=== PATIENT | male | born 2000 | race Caucasian/White ===

== ENCOUNTER 2020-04-07 13:42 | Emergency (ER) | payer OTHER, SELFPAY ==
--- NOTE | ~2020-04-07 | CT_ITS ---
EXAMINATION: CT abdomen pelvis w con DATE: 04/07/2020 14:33 INDICATION: Abdominal pain. Nausea and vomiting. TECHNIQUE: Computed tomography (CT) of the abdomen and pelvis was performed with 100 mL Omnipaque 350 intravenous contrast. Automated exposure control and iterative reconstruction technique were employe d. The dose-length product was 284.97 mGy-cm. COMPARISON: None. FINDINGS: The visualized portions of the lung bases are clear without pneumonia or pleural effusion. The heart size is normal. Pneumomediastinum is noted. The liver, gallbladder, spleen, pancreas, adren al glands, and kidneys are normal. There are no dilated loops of bowel. The appendix is normal. There are no pathologically enlarged lymph nodes. There is no free intraperitoneal fluid. The bones are un remarkable. IMPRESSION: 1. Pneumomediastinum. Reviewed, dictated and finalized at location A. IMPRESSION: 1. Pneumomediastinum.
[2020-04-07 13:46] VITALS: BP 138/80; PULSE 62; RESP 20; TEMP 36.5; O2SAT 99
[2020-04-07 14:06] LABS: Basophils Percent Auto 0.3 % (0.2-1.2); Eosinophils Percent Auto 0.2 % (0-4.4); Hematocrit 50.8 % (42.0-52.0); Immature Granulocyte Absolute 0.04 K/mm3 (0.00-0.031); Immature Granulocyte Percent A 0.4 % (0-0.5); Lymphocytes Absolute Auto 1.36 K/mm3 (0.9-3.2); Lymphocytes Percent Auto 14.2 % (18.3-44.2); Mean Corpuscular HGB Conc 35.4 g/dl (32-36); Mean Corpuscular Hemoglobin 31.1 pg (26-34); Mean Corpuscular Volume 87.7 fl (80-100); Mean Platelet Volume 12.3 fl (7.4-10.4); Monocytes Absolute Auto 0.5 K/mm3 (0.1-0.6); Monocytes Percent Auto 4.8 % (2.6-8.5); Neutrophils Absolute Auto 7.7 K/mm3 (1.3-6.7); Neutrophils Percent Auto 80.1 % (45.5-73.1); Platelet Count Result 177 k/mm3 (150-375); Red Blood Count 5.79 M/mm3 (4.6-6.20); Red Cell Distribution Width 11.9 % (11.5-14.5); White Blood Count 9.6 K/mm3 (4.5-10.0)
--- NOTE | 2020-04-07 14:09 | ED.GENADULT ---
HPI - General Adult General Chief complaint: Abdominal Pain Stated complaint: abd pain, N/V Time Seen by Provider: 04/07/20 13:44 Source: patient History of Present Illness HPI narrative: Patient is a 19 y/o male complaining of left sided abdominal pain and vomiting since this morning. He describes the pain as cramping and rates it as 5/10. There is no alleviating or exacerbating factor. There is no pain radiation. He vomited approximately 5 times. He denies any fever, chills or dysuria. Related Data Home Medications Medication Instructions Recorded Confirmed No Home Medications 04/07/20 04/07/20 Allergies Allergy/AdvReac Type Severity Reaction Status Date / Time No Known Allergies Allergy Verified 04/07/20 13:50 Review of Systems Constitutional: Constitutional: Denies chills, Denies fever(s), Denies headache(s) and Denies weakness Eyes: Eyes: Denies blurry vision ENT: Denies headache(s) and Denies neck pain Cardiovascular: Cardiovascular: Denies chest pain and Denies dyspnea Respiratory: Respiratory: Denies cough and Denies dyspnea Gastrointestinal: Gastrointestinal: Reports abdominal pain, Denies diarrhea, Reports nausea and Reports vomiting Genitourinary: Genitourinary: Denies hematuria and Denies dysuria Musculoskeletal: Musculoskeletal: Denies back pain and Denies neck pain Neurologic: Denies headache(s) and Denies weakness Exam Const: General: no acute distress and well developed Orientation/consciousness: oriented to person, oriented to place, oriented to time and patient oriented x3 HENMT: Head: normocephalic Ears: external ears normal General nose exam: Normal external nose present Eyes: General: appearance normal, both eyes and all related structures Conjunctivae: conjunctivae normal Neck: Neck: normal visual inspection and full ROM Chest: Chest palpation & inspection: normal inspection of the chest and no tenderness Resp: Effort & Inspection: normal respiratory effort Auscultation: clear to auscultation bilaterally Cardio: Rate: regular rate Rhythm: regular rhythm GI: GI Palp: No abdominal tenderness and Yes Soft to palpation Skin: General skin exam: normal color and turgor normal Neuro: General: oriented to person, oriented to place, oriented to time and patient oriented x3 Cognition (Neuro): normal cognition Extrem: General: normal to inspection, full ROM and no pedal edema Psych: Appearance: grossly normal Mental Status: mental status grossly normal Affect: normal affect Course Consultations Consultation #1: Discussed with Dr. Saldivar (thoracic surgery at [place]), who agrees to transfer. Date: 04/07/20 Time: 16:10 Vital Signs Vital signs: Vital Signs Temperature 36.5 C 04/07/20 13:46 Pulse Rate 62 04/07/20 13:46 Respiratory Rate 20 04/07/20 13:46 Blood Pressure 138/80 04/07/20 13:46 Pulse Oximetry 99 04/07/20 13:46 Temperature 36.6 C 04/08/20 02:45 Pulse Rate 65 04/08/20 02:45 Respiratory Rate 19 04/08/20 02:45 Blood Pressure 118/67 04/08/20 02:45 Pulse Oximetry 99 04/08/20 02:45 Medical Decision Making Vital Signs Vital Signs: Vital Signs Temperature 36.5 C 04/07/20 13:46 Pulse Rate 62 04/07/20 13:46 Respiratory Rate 20 04/07/20 13:46 Blood Pressure 138/80 04/07/20 13:46 Pulse Oximetry 99 04/07/20 13:46 Temperature 36.6 C 04/08/20 02:45 Pulse Rate 65 04/08/20 02:45 Respiratory Rate 19 04/08/20 02:45 Blood Pressure 118/67 04/08/20 02:45 Pulse Oximetry 99 04/08/20 02:45 Lab Data Result diagrams: 04/07/20 13:53 04/07/20 13:53 Labs: Lab Results 04/07/20 04/07/20 04/07/20 Range/Units 13:53 13:53 13:53 WBC 9.6 (4.5-10.0) K/mm3 RBC 5.79 (4.6-6.20) M/mm3 Hgb 18.0 (14.0-18.0) g/dL Hct 50.8 (42.0-52.0) % MCV 87.7 (80-100) fl MCH 31.1 (26-34) pg MCHC 35.4 (32-36) g/dl RDW 11.9 (11.5-14.5) % Plt Count 177
[2020-04-07 14:13] LABS: Alanine Aminotransferase 22 U/L (4-50); Albumin Level 5.5 g/dL (3.7-5.6); Alkaline Phosphatase 102 U/L (58-237); Anion Gap 14 mmol/L (8-16); Aspartate Amino Transferase 30 U/L (17-59); Bilirubin,Total 0.9 mg/dL (0.2-1.3); Blood Urea Nitrogen 16 mg/dL (8-21); Calcium 10.8 mg/dL (8.9-10.7); Carbon Dioxide 28 mmol/L (22-30); Chloride 100 mmol/L (98-107); Estimated CRCL calculation 129 ml/min; Estimated Glomerular Filt Rate > 60; Glucose 131 mg/dL (75-110); Lipase 119 U/L (23-300); Potassium 3.6 mmol/L (3.4-5.0); Sodium 142 mmol/L (134-143)
[2020-04-07] MEDS: KETOROLAC 30 MG/ML VIAL (*BKC) IV PUSH (14:22)
[2020-04-07] MEDS: ONDANSETRON INJ 4 MG/2 ML VIAL IV PUSH (14:22)
[2020-04-07] MEDS: SODIUM CHLORIDE 0.9% IV 1,000 ML 999 ML IV CONT (14:22)
[2020-04-07 15:36] VITALS: BP 133/72; PULSE 50; RESP 15; O2SAT 99
[2020-04-07 15:56] LABS: Add Urine Microscopic? YES; Appearance Urine Cloudy (Clear); Bacteria Urine Trace /hpf; Bilirubin Urine Negative (Negative); Blood Urine Negative (Negative); Color Urine Yellow (Yellow); Glucose Urine UA Negative (Negative); Ketones Urine 2+ mg/dL (Negative); Leukocyte Esterase Ur Negative LEU/UL (Negative); Mucus Urine Rare /lpf; Nitrate Urine Negative (Negative); Protein Urine 1+ mg/dL (Negative); RBC Urine 0-2 /hpf (0-2); Urobilinogen Urine Negative mg/dL (<2.0); WBC Urine 0-3 /hpf
[2020-04-07 15:59] LABS: Specific Grav Ur 1.059 (1.001-1.035)
--- NOTE | 2020-04-07 16:15 | PC.NURSE ---
Patient unable to urinate again for drug screen at this time, patient reports that he will attempt again later.
[2020-04-07 16:20] VITALS: BP 135/72; PULSE 66; RESP 18; O2SAT 98
[2020-04-07] MEDS: METOCLOPRAMIDE HCL INJ 10 MG/2 ML VIAL IV PUSH (16:27)
[2020-04-07 16:40] LABS: Amphetamine Screen Urine Negative (Negative); Barbiturate Screen Urine Negative (Negative); Benzodiazepines Screen Urine Negative (Negative); Cannabinoid Screen Urine Positive (Negative); Cocaine Screen Urine Negative (Negative); Methadone Screen Urine Negative (Negative); Opiate Screen Urine Negative (Negative); Phencyclidine Screen Urine Negative (Negative)
[2020-04-07 17:59] VITALS: BP 119/66; PULSE 73; RESP 18; O2SAT 96
[2020-04-07 18:49] VITALS: BP 138/73; PULSE 53; RESP 17; O2SAT 99
--- NOTE | 2020-04-07 20:44 | PC.NURSE ---
SPOKE WITH MATT AT [facility]...EVERYTHING IS COMPLETED, STILL WAITING FOR A BED ASSIGNMENT...DOES NOT EXPECT ANYTHING BEFORE MIDNIGHT.
[2020-04-08] MEDS: ONDANSETRON INJ 4 MG/2 ML VIAL IV PUSH (00:23)
--- NOTE | 2020-04-08 00:35 | PC.NURSE ---
[facility] Transfer[facility]Access called with bed (#[id number]) for patient.
--- NOTE | 2020-04-08 00:40 | PC.NURSE ---
Called [facility] to transport to [place] (#[id number]). ETA 02:30.
[2020-04-08 02:45] VITALS: BP 118/67; PULSE 65; RESP 19; TEMP 36.6; O2SAT 99
== END 2020-04-08 02:45 | disposition short-term general hospital (02) ==
LOC: ANHED 13:52
PROVIDERS: Emergency Provider Emergency Medicine; PCP Pediatrics
DX: J98.2 Interstitial emphysema (principal); R11.2 Nausea with vomiting, unspecified
CPT/HCPCS: 36415; 74177; 80053; 80307; 81001; 83690; 85025; 96361; 96374; 96375; 99285; J1885; J2405; J2765; J7030; Q9967

== ENCOUNTER 2023-08-14 10:39 | Emergency (ER) | payer OTHER, SELFPAY ==
[2023-08-14 10:47] VITALS: BP 145/81; PULSE 78; RESP 16; O2SAT 100
--- NOTE | 2023-08-14 12:11 | ED.NAVMDI ---
HPI - Nausea/Vomiting/Diarrhea General Chief complaint: Nausea/Vomiting/Diarrhea Stated complaint: N/V Time Seen by Provider: 08/14/23 11:55 Source: patient and family ( Father) Mode of arrival: ambulatory Limitations: no limitations History of Present Illness HPI Narrative: 22-year-old male presents with nausea, vomiting, and diarrhea. He has had approximately 10 episodes of nonbloody nonbilious emesis. He has also had 2 loose but soft and formed stools. No sick contacts. No fevers or abdominal pain. He is experiencing chills. Dad was concerned as he appeared pale. he has a history of esophageal tear during vomiting previously but is not having chest pain and has nonbloody emesis at this time. Related Data Allergies Allergy/AdvReac Type Severity Reaction Status Date / Time No Known Allergies Allergy Verified 08/14/23 12:21 [facility] Past Medical History Medical History (Updated 08/15/23 @ 00:00 by Background Daemon) Esophageal tear Exam Narrative: GENERAL: Well-appearing, well-nourished, and in no acute distress. HEAD: Normocephalic, atraumatic. EYES: Non injected, non icteric ENT: Nares clear, no rhinorrhea or epistaxis. NECK: Supple. CHEST: Speaking complete sentences. No respiratory distress. HEART: Regular rate and rhythm. ABDOMEN: Soft, nondistended. nontender to palpation without rigidity or guarding. EXTREMITIES: Normal range of motion. No edema. SKIN: Warm, dry, no rash. No diaphoresis. Pale. NEURO: No focal deficits. Alert and oriented x3. PSYCH: Normal mood and affect. Course Vital Signs Vital signs: Vital Signs Pulse Rate 78 08/14/23 10:47 Respiratory Rate 16 08/14/23 10:47 Blood Pressure 145/81 H 08/14/23 10:47 Pulse Oximetry 100 08/14/23 10:47 Temperature 97.8 F 08/14/23 15:22 Pulse Rate 79 08/14/23 15:22 Respiratory Rate 19 08/14/23 15:22 Blood Pressure 128/69 08/14/23 15:22 Pulse Oximetry 100 08/14/23 15:22 MDM - Nausea/Vomiting/Diarrhea MDM Narrative Medical decision making narrative: Patient presents nausea, vomiting, diarrhea of 1 day's duration. In the emergency department he is afebrile (VS doesn't initially include temp but did observe RN obtaining 97.4F under tongue), with vital signs that show only mild hypertension. Will obtain labs as well as viral testing. Patient will be given IV ondansetron and reassess. Will defer obtaining imaging at this time as he has a benign abdominal exam is without abdominal pain. Work up generally unremarkable. Viral testing negative. Re-evaluated, resting comfortably. DIscussed discharge instructions extensively with patient's father. Will Rx ondansetron so can maintain hydration. Discussed diluting juice and possibly avoiding milk. Discussed B-R-A-T or otherwise bland diet. Will provide work note. Given ED return precautions; father verified understanding. Differential Diagnosis Differential diagnosis: Likely traveler's diarrhea, food poisoning, gastroenteritis, drug-induced nausea and vomiting (considered cannabinoid hyperemesis syndrome) and dehydration Lab Data Attestation: I reviewed the patient's lab results. Lab results narrative: Thrombocytopenia and leukocytosis. Normal renal funciton. No marked electrolyte abnormalities. Urine turbid with ketonuria and mild proteinuria but w/o evidence of infection. 08/14/23 12:14 08/14/23 12:14 Labs: Lab Results 08/14/23 08/14/23 Range/Units 12:14 13:04 WBC 13.9 H (4.5-10.0) K/mm3 RBC 5.01 (4.6-6.20) M/mm3 Hgb 15.7 (14.0-18.0) g/dL Hct 45.9 (42.0-52.0) % MCV 91.6 (80-100) fl MCH 31.3 (26-34) pg MCHC 34.2 (32-36) g/dl RDW 11.7 (11.5-14.5) % Plt Count 146 L (150-375) k/mm3 MPV 12.5 H (7.4-10.4) fl Immature Gran % (Auto) 0.3 (0-0.5) % Neut % (Auto) 90.9 H (45.5-73.1) % Lymph % (Auto) 4.7 L (18.3-44.2) % [place] % (Auto) 3.8 (2.6-8.5) % Eos % (Auto)
[2023-08-14 12:19] VITALS: BP 160/69; PULSE 56; RESP 20; TEMP 36.6; O2SAT 100
[2023-08-14] MEDS: ONDANSETRON INJ 4 MG/2 ML VIAL IV PUSH (12:22)
[2023-08-14 12:24] LABS: Basophils Percent Auto 0.2 % (0.2-1.2); Eosinophils Percent Auto 0.1 % (0-4.4); Hematocrit 45.9 % (42.0-52.0); Hemoglobin 15.7 g/dL (14.0-18.0); Immature Granulocyte Absolute 0.04 K/mm3 (0.00-0.031); Immature Granulocyte Percent A 0.3 % (0-0.5); Lymphocytes Absolute Auto 0.66 K/mm3 (0.9-3.2); Lymphocytes Percent Auto 4.7 % (18.3-44.2); Mean Corpuscular HGB Conc 34.2 g/dl (32-36); Mean Corpuscular Hemoglobin 31.3 pg (26-34); Mean Corpuscular Volume 91.6 fl (80-100); Mean Platelet Volume 12.5 fl (7.4-10.4); Monocytes Absolute Auto 0.5 K/mm3 (0.1-0.6); Monocytes Percent Auto 3.8 % (2.6-8.5); Neutrophils Absolute Auto 12.6 K/mm3 (1.3-6.7); Neutrophils Percent Auto 90.9 % (45.5-73.1); Platelet Count Result 146 k/mm3 (150-375); Red Blood Count 5.01 M/mm3 (4.6-6.20); Red Cell Distribution Width 11.7 % (11.5-14.5); White Blood Count 13.9 K/mm3 (4.5-10.0)
[2023-08-14] MEDS: SODIUM CHLORIDE 0.9% IV 1,000 ML 999 ML IV CONT (12:30)
[2023-08-14 12:34] LABS: Alanine Aminotransferase 25 U/L (6-50); Albumin Level 5.3 g/dL (3.5-5.1); Alkaline Phosphatase 75 U/L (38-126); Anion Gap 10 mmol/L (8-16); Aspartate Amino Transferase 35 U/L (17-59); Bilirubin,Total 0.9 mg/dL (0.2-1.3); Blood Urea Nitrogen 18 mg/dL (9-20); Calcium 10.4 mg/dL (8.4-10.2); Carbon Dioxide 28 mmol/L (22-30); Chloride 102 mmol/L (98-107); Estimated CRCL calculation 117 ml/min; Estimated Glomerular Filt Rate > 60; Glucose 136 mg/dL (65-110); Lipase 71 U/L (23-300); Potassium 4.1 mmol/L (3.4-5.0); Sodium 140 mmol/L (137-145)
[2023-08-14 12:36] LABS: Magnesium 2.1 mg/dL (1.6-2.3)
[2023-08-14 13:01] LABS: Influenza A QL RT-PCR Negative (Negative); Influenza B QL RT-PCR Negative (Negative); SARS-CoV-2 RNA PCR Negative (Negative)
[2023-08-14 13:22] LABS: Appearance Urine Turbid (Clear); Bacteria Urine None Seen /hpf; Bilirubin Urine Negative (Negative); Blood Urine Negative (Negative); Color Urine Yellow (Yellow); Glucose Urine UA Negative (Negative); Ketones Urine 2+ mg/dL (Negative); Leukocyte Esterase Ur Negative LEU/UL (Negative); Nitrate Urine Negative (Negative); Non Pathogenic Casts 0-2; Protein Urine 1+ mg/dL (Negative); RBC Urine 0-2 /hpf (0-2); Specific Grav Ur 1.018 (1.001-1.035); Squamous Epithelial Cell Urine None seen /hpf (Few); Urobilinogen Urine 0.2 mg/dL (<2.0); WBC Urine 0-5 /hpf; pH Urine 8.5 (5.0-9.0)
[2023-08-14 13:25] LABS: Add Urine Microscopic? YES
[2023-08-14 15:22] VITALS: BP 128/69; PULSE 79; RESP 19; TEMP 36.6; O2SAT 100
== END 2023-08-14 15:23 | disposition home or self-care (01) ==
PROVIDERS: Physician Assistant; Emergency Provider Student in an Organized Health Care Education/Training Program
DX: K52.9 Noninfective gastroenteritis and colitis, unspecified (principal); D69.6 Thrombocytopenia, unspecified; D72.829 Elevated white blood cell count, unspecified; Z20.822 Contact with and (suspected) exposure to COVID-19
CPT/HCPCS: 36415; 80053; 81001; 83690; 83735; 85025; 87636; 96361; 96374; 99284; J2405; J7030